=== PATIENT | female | born 2000 | race Caucasian/White ===

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

== ENCOUNTER → 2020-05-16 | Outpatient (CLI) | payer OTHER ==
[2011-12-24 21:23] VITALS: BP 110/70
[2020-05-17 09:16] LABS: AFFIRM VAGINITIS PANEL RESULTS AMS
== END ==
LOC: LAB 10:13
PROVIDERS: Physician Assistant
DX: Z76.89 Persons encountering health services in other specified circumstances (principal); N89.8 Other specified noninflammatory disorders of vagina